=== PATIENT | female | born 1935 | race Hispanic/Latino ===

== ENCOUNTER → 2018-04-16 | Outpatient (RCR) | payer MEDICARE ==
[~2018-04-16] MED LIST: FLUOCINONIDE 0.05% 1 EA/15 GM TUBE ONE; LIDOCAINE HCL 2% LOCAL 20 ML VIAL ONE; LIDOCAINE VISC 2% SOLN 15 ML UDC ONE; MINERAL OIL/PETROLAT/GLYCERI 6OZ BTL ONE
== END ==
LOC: WCC 04-02 14:09
PROVIDERS: ATTEND Family Medicine Adult Medicine
DX: S81.802A Unspecified open wound, left lower leg, initial encounter (principal); B96.89 Other specified bacterial agents as the cause of diseases classified elsewhere; I10 Essential (primary) hypertension; E03.8 Other specified hypothyroidism; E78.5 Hyperlipidemia, unspecified; W45.8XXA Other foreign body or object entering through skin, initial encounter
CPT/HCPCS: 11042 ×2; 87071; 87075; 87205; 99203; 99213; J2001

== ENCOUNTER 2021-06-05 09:04 | Inpatient (IN) | payer MEDICARE ==
[~2021-06-05] VITALS: Ht 162.6 cm; Wt 66.7 kg
[2021-06-05] MEDS ORDERED: SODIUM CHLORIDE 0.9% 1000ML 1,000 ML IV STA (09:25)
[2021-06-05] MEDS ORDERED: ONDANSETRON HCL INJ 2MG/ML 2ML 2 MG/ML VIAL IV NR (09:25)
[2021-06-05] MEDS ORDERED: MECLIZINE HCL 12.5 MG TAB PO NR (09:30)
[2021-06-05 09:45] LABS: BASOPHILS % 0.4 % (0.0-1.0); EOSINOPHILS # (AUTO) 0.2 (0.0-0.4); EOSINOPHILS % 2.5 % (0.0-6.0); HEMATOCRIT 37.2 % (34.2-44.1); HEMOGLOBIN 11.6 g/dL (12.0-16.0); LYMPHOCYTES # (AUTO) 1.4 (1.0-3.2); MEAN CORPUSCULAR HEMOGLOBIN 26.4 pg (28-32); MEAN CORPUSCULAR HGB CONC 31.2 g/dL (31-35); MEAN CORPUSCULAR VOLUME 84.7 fL (81-99); MONOCYTES # (AUTO) 0.6 (0.2-0.8); MONOCYTES % 8.4 % (4.4-11.3); NEUTROPHILS # (AUTO) 4.9 (2.1-6.9); NEUTROPHILS % 68.1 % (38.7-80.0); PLATELET COUNT 186 x10e3/uL (140-360); RED BLOOD COUNT 4.39 x10e6/uL (3.6-5.1); RED CELL DISTRIBUTION WIDTH 14.5 % (11.7-14.4)
[2021-06-05 10:04] LABS: ALBUMIN 3.9 g/dL (3.5-5.0); ALBUMIN/GLOBULIN RATIO 1.1 (0.8-2.0); CALCIUM 9.2 mg/dL (8.4-10.2); CREATININE, SERUM 1.13 mg/dL (0.57-1.11); MAGNESIUM 2.1 MG/DL (1.3-2.1)
[2021-06-05 10:15] LABS: INR 1.06
[2021-06-05 10:24] LABS: CREATINE KINASE MB 0.8 ng/mL (0-5.0); THYROID STIMULATING HORMONE 2.229 uIU/mL (0.350-4.940)
[2021-06-05 13:01] LABS: CLARITY,URINE SL CLOUDY (CLEAR); COLOR,URINE YELLOW (YELLOW); KETONES,URINE NEGATIVE (NEGATIVE); LEUKOCYTE ESTERASE ,URINE SMALL (NEGATIVE); NITRITE,URINE NEGATIVE (NEGATIVE); PROTEIN,URINE DIPSTICK NEGATIVE (NEGATIVE); URINE UROBILINOGEN 0.2 mg/dL (0.2 - 1)
[2021-06-05 13:07] LABS: BACTERIA,URINE FEW /HPF; EPITHELIAL CELLS,URINE MANY /LPF; RBC,URINE 0-5 /HPF (0-5)
[2021-06-05] MEDS ORDERED: MECLIZINE HCL 12.5 MG TAB PO PRN (14:15)
[2021-06-05] MEDS ORDERED: ONDANSETRON HCL INJ 2MG/ML 2ML 2 MG/ML VIAL IV PRN (14:15)
[2021-06-05 15:20] VITALS: BP 118/53
[2021-06-05 15:40] VITALS: BP 118/53
[2021-06-05 16:00] VITALS: BP 118/53
[2021-06-05] MEDS: SODIUM CHLORIDE 0.9% 1000ML 1,000 ML IV SCH (16:19)
[2021-06-05] MEDS ORDERED: LEVOTHYROXINE50 MCG PO (16:25)
[2021-06-05] MEDS ORDERED: VITAMIN D350 MCG PO (16:25)
[2021-06-05] MEDS ORDERED: LOPRESSOR25 MG PO (16:25)
[2021-06-05] MEDS ORDERED: LIPITOR20 MG PO (16:25)
[2021-06-05] MEDS ORDERED: NORVASC5 MG PO (16:25)
[2021-06-05] MEDS ORDERED: GLIMEPIRIDE2 MG PO (16:25)
[2021-06-05] MEDS ORDERED: LOSARTAN POTAS100 MG PO (16:26)
[2021-06-05] MEDS ORDERED: METOPROLOL TART25 MG PO (16:28)
[2021-06-05 20:00] VITALS: BP 137/57
[2021-06-06] VITALS (8 sets, daily range): BP systolic 121–135; BP diastolic 47–62
[2021-06-06] MEDS ORDERED: HYDRALAZINE HCL 20 MG/ML VIAL IV PRN
[2021-06-06] MEDS ORDERED: DEXTROSE 50% SYRINGE 50 ML IV PRN (00:15)
[2021-06-06] MEDS: CEFTRIAXONE 1 GM in SODIUM CHLORIDE 0.9% 50ML 50 ML IV SCH ×2 (00:15→21:18)
[2021-06-06] MEDS: SODIUM CHLORIDE 0.9% 1000ML 1,000 ML IV SCH ×2 (00:55→21:02)
[2021-06-06 06:57] LABS: BASOPHILS % 0.5 % (0.0-1.0); EOSINOPHILS # (AUTO) 0.1 (0.0-0.4); EOSINOPHILS % 2.1 % (0.0-6.0); HEMOGLOBIN 9.7 g/dL (12.0-16.0); LYMPHOCYTES # (AUTO) 1.5 (1.0-3.2); LYMPHOCYTES % 22.1 % (18.0-39.1); MEAN CORPUSCULAR HEMOGLOBIN 27.5 pg (28-32); MEAN CORPUSCULAR HGB CONC 32.3 g/dL (31-35); MONOCYTES # (AUTO) 0.3 (0.2-0.8); NEUTROPHILS # (AUTO) 4.6 (2.1-6.9); NEUTROPHILS % 69.8 % (38.7-80.0); PLATELET COUNT 148 x10e3/uL (140-360); RED BLOOD COUNT 3.53 x10e6/uL (3.6-5.1); RED CELL DISTRIBUTION WIDTH 14.7 % (11.7-14.4)
[2021-06-06] MEDS: INSULIN REGULAR, HUMAN 100 UNIT/1 ML SQ SCH ×4 (07:30→21:00)
[2021-06-06] MEDS: LOSARTAN POTASSIUM 100 MG TAB PO SCH (08:23)
[2021-06-06] MEDS: AMLODIPINE BESYLATE 5 MG TAB PO SCH (08:23)
[2021-06-06] MEDS: ATORVASTATIN 10 MG TAB PO SCH (08:23)
[2021-06-06] MEDS: ASPIRIN 81 MG ENTERIC COATED PO SCH (08:23)
[2021-06-06] MEDS: METOPROLOL TARTRATE 25 MG TAB PO SCH ×2 (08:23→16:51)
[2021-06-06] MEDS: MULTIVITAMINS/MINERALS TAB PO SCH (08:23)
[2021-06-06] MEDS: LEVOTHYROXINE SODIUM 50 MCG TAB PO SCH (08:23)
[2021-06-06 08:35] LABS: ALBUMIN 3.3 g/dL (3.5-5.0); ALBUMIN/GLOBULIN RATIO 1.2 (0.8-2.0); ANION GAP 12.2 mmol/L (8-16); CALCIUM 8.6 mg/dL (8.4-10.2); CHOL/HDL RATIO 2.8 (3.0-3.6); CREATININE, SERUM 0.94 mg/dL (0.57-1.11); POTASSIUM 4.2 mmol/L (3.5-5.1)
[2021-06-06 08:43] LABS: CREATINE KINASE MB 0.9 ng/mL (0-5.0)
[2021-06-06] MEDS: ENOXAPARIN SOD INJ 40 MG/0.4 ML SYR SC SCH (16:51)
[2021-06-07] VITALS (8 sets, daily range): BP systolic 118–150; BP diastolic 51–72
[2021-06-07] MEDS: SODIUM CHLORIDE 0.9% 1000ML 1,000 ML IV SCH ×2 (06:15→12:29)
[2021-06-07] MEDS: LEVOTHYROXINE SODIUM 50 MCG TAB PO SCH (07:22)
[2021-06-07] MEDS: INSULIN REGULAR, HUMAN 100 UNIT/1 ML SQ SCH ×4 (07:30→21:00)
[2021-06-07] MEDS: ASPIRIN 81 MG ENTERIC COATED PO SCH (08:00)
[2021-06-07] MEDS: METOPROLOL TARTRATE 25 MG TAB PO SCH ×2 (08:01→17:10)
[2021-06-07] MEDS: ATORVASTATIN 10 MG TAB PO SCH (08:01)
[2021-06-07] MEDS: LOSARTAN POTASSIUM 100 MG TAB PO SCH (08:01)
[2021-06-07] MEDS: MULTIVITAMINS/MINERALS TAB PO SCH (08:01)
[2021-06-07] MEDS: AMLODIPINE BESYLATE 5 MG TAB PO SCH (08:02)
[2021-06-07] MEDS: ACETAMINOPHEN 325 MG TAB PO PRN ×2 (08:07→17:14)
[2021-06-07] MEDS: ENOXAPARIN SOD INJ 40 MG/0.4 ML SYR SC SCH (17:12)
[2021-06-07] MEDS: CEFTRIAXONE 1 GM in SODIUM CHLORIDE 0.9% 50ML 50 ML IV SCH (21:40)
[2021-06-08 00:19] VITALS: BP 126/61
[2021-06-08 04:59] VITALS: BP 136/57
[2021-06-08 07:20] VITALS: BP 160/71
[2021-06-08] MEDS: INSULIN REGULAR, HUMAN 100 UNIT/1 ML SQ SCH ×2 (07:30→11:25)
[2021-06-08] MEDS: LOSARTAN POTASSIUM 100 MG TAB PO SCH (08:31)
[2021-06-08] MEDS: SODIUM CHLORIDE 0.9% 1000ML 1,000 ML IV SCH (08:31)
[2021-06-08] MEDS: LEVOTHYROXINE SODIUM 50 MCG TAB PO SCH (08:31)
[2021-06-08] MEDS: ASPIRIN 81 MG ENTERIC COATED PO SCH (08:31)
[2021-06-08] MEDS: AMLODIPINE BESYLATE 5 MG TAB PO SCH (08:32)
[2021-06-08] MEDS: METOPROLOL TARTRATE 25 MG TAB PO SCH (08:32)
[2021-06-08] MEDS: MULTIVITAMINS/MINERALS TAB PO SCH (08:32)
[2021-06-08] MEDS: ATORVASTATIN 10 MG TAB PO SCH (08:32)
[2021-06-08 08:34] VITALS: BP 160/71
[2021-06-08 11:19] VITALS: BP 127/62
== END 2021-06-08 13:10 | disposition home or self-care (01) | DRG 149 ==
LOC: ER 09:40 → ERHOLD 14:15 → MED/SURG 15:51 → OBSVTOIN 06-07 16:40
PROVIDERS: ADMIT Internal Medicine; ATTEND Internal Medicine
DX: H81.399 Other peripheral vertigo, unspecified ear (principal); N39.0 Urinary tract infection, site not specified; I95.1 Orthostatic hypotension; E78.5 Hyperlipidemia, unspecified; W19.XXXA Unspecified fall, initial encounter; Z91.81 History of falling; E03.9 Hypothyroidism, unspecified; M17.12 Unilateral primary osteoarthritis, left knee; E11.40 Type 2 diabetes mellitus with diabetic neuropathy, unspecified; Z79.899 Other long term (current) drug therapy; I16.0 Hypertensive urgency; Z20.822 Contact with and (suspected) exposure to COVID-19; E86.0 Dehydration
CPT/HCPCS: 36415; 70450; 70551; 71045; 72125; 80053; 80061; 81001; 82550; 82553; 82948; 83036; 83735; 83880; 84443; 84484; 85025; 85610; 85730; 87086; 93005; 93306; 93880; 97139; 99251; 99284; G0378; J0696; J1650; J1817; J2405; J7030; U0002